=== PATIENT | male | born 2000 | race Caucasian/White ===

== ENCOUNTER → 2022-04-20 | Day surgery (SDC) | payer BC ==
[~2022-04-20] MED LIST: Lactated Ringers 1,000 ML IV SCH; Meperidine 50 MG/ML Vial IVPUSH ONE; Meperidine PF 25 MG/ML SDV IVPUSH ONE; Midazolam 1 MG/ML 2 ML SDV IVPUSH ONE
== END ==
LOC: CC.SDS 06:00
PROVIDERS: ATTEND Family Medicine
DX: K52.9 Noninfective gastroenteritis and colitis, unspecified (principal); K63.89 Other specified diseases of intestine; I10 Essential (primary) hypertension
CPT/HCPCS: J2175; J2250; J7120